=== PATIENT | female | born 1970 | race Caucasian/White ===

== ENCOUNTER → 2016-07-24 | Outpatient (CLI) | payer BC | LOC: MC.RAD 07:57 | DX: N63 Unspecified lump in breast (principal) ==

== ENCOUNTER → 2019-10-06 | Outpatient (CLI) | payer BC | LOC: COL.PUL 13:00 | DX: R94.2 Abnormal results of pulmonary function studies (principal); F17.210 Nicotine dependence, cigarettes, uncomplicated ==